=== PATIENT | male | born 1960 | race Caucasian/White ===

== ENCOUNTER 2018-10-04 10:25 | Emergency (ER) | payer OTHER ==
[2018-10-04 10:36] VITALS: BP 150/81
--- NOTE | 2018-10-04 10:43 | ER Document Report ---
ED Medical Screen (RME) - General Chief Complaint: Back Pain Stated Complaint: BACK PAIN Time Seen by Provider: 10/04/18 10:36 Mode of Arrival: Ambulatory Information source: Patient TRAVEL OUTSIDE OF THE [place] IN LAST 30 DAYS: No - HPI Patient complains to provider of: back pain, n/t Notes: 10/04/18 10:41 Patient here with complaints of back pain with numbness, tingling from the waist down. Patient states that he was installing a door when he had a sudden pain in his lower back. This happened on Wednesday. Since that time he has had intermittent low back pain, but complains of achy pain and numbness from his waist down including his groin area. He is not on blood thinners. No trauma or fall. No IV drug use. No fever. No abdominal pain. No nausea, vomiting, diarrhea. No dysuria or hematuria. He was seen at urgent care and was sent to the emergency department for further evaluation. Exam No distress, nontoxic-appearing. Reflexes are normal. Patient does complain of decreased sensation to his lower extremities bilaterally. This is diffuse. Patient is able to ambulate. Plan Patient will be taken to the back to be evaluated further by another provider in a more thorough fashion. They will be able to determine if imaging is indicated at this time. An initial examination was made on the patient as part of the triage process, and it was determined a more comprehensive evaluation was necessary. Initial labs were ordered and patient was transferred to another provider in the ED who assumed care and finished evaluation and plan. - Related Data Allergies/Adverse Reactions: No Known Allergies Allergy (Verified 10/04/18 10:40) Past Medical History - Social History Frequency of alcohol use: few beers daily Drug Abuse: None Renal/ Medical History: Denies: Hx Peritoneal Dialysis Physical Exam - Vital signs Vitals: Temp Pulse Resp BP Pulse Ox 97.9 F 74 18 150/81 H 98 10/04/18 10:35 10/04/18 10:35 10/04/18 10:35 10/04/18 10:35 10/04/18 10:35 Course - Vital Signs Vital signs: Temp Pulse Resp BP Pulse Ox 97.9 F 74 18 150/81 H 98 10/04/18 10:35 10/04/18 10:35 10/04/18 10:35 10/04/18 10:35 10/04/18 10:35
--- NOTE | 2018-10-04 13:26 | RADIOLOGY REPORT (SQ) ---
EXAM DESCRIPTION: MRI LUMBAR SPINE WITHOUT COMPLETED DATE/TIME: 10/04/2018 1:13 pm REASON FOR STUDY: r/o cauda equina COMPARISON: None. TECHNIQUE: Sagittal and Axial imaging includes T1, T2, STIR and gradient echo sequences. Coronal T2/ HASTE imaging. LIMITATIONS: None. FINDINGS: VISUALIZED UPPER ABDOMEN: Limited evaluation. No acute or suspicious findings suggested. SEGMENTATION: No transitional anatomy. The lowest well-developed disc space is labeled L5-S1. ALIGNMENT: Anatomic. VERTEBRAE: Intact. BONE MARROW: Normal. No marrow replacement or reactive changes. DISC SIGNAL: Decreased height and signal. POSTERIOR ELEMENTS: Generally intact. No pars defect evident. HARDWARE: None in the spine. CORD AND CONUS: Normal in size and signal intensity. Conus at the appropriate level. SOFT TISSUES: No aortic aneurysm seen. No bulky retroperitoneal adenopathy or mass. No paraspinal mas s or fluid. L1-L2: Mild diffuse posterior disc bulge, asymmetric to the right side. Mild to moderate right later al recess stenosis. No significant exit foraminal stenosis. L2-L3: Mild diffuse posterior disc bulge. Mild facet arthropathy. Moderate spinal stenosis. No sig nificant exit foraminal stenosis. L3-L4: Mild diffuse posterior disc bulge. Moderate facet arthropathy. Moderate spinal stenosis. Mi ld exit foraminal stenosis. L4-L5: Diffuse posterior disc bulge. Moderate to severe facet arthropathy. Severe spinal stenosis. Mild exit foraminal stenosis. L5-S1: No significant disc bulge. Mild facet arthropathy. No significant spinal stenosis or exit fo raminal stenosis. LOWER THORACIC: Incompletely imaged. No stenosis seen. SACRUM: Visualized upper sacrum intact. OTHER: No other significant findings. IMPRESSION: MULTILEVEL CHRONIC DEGENERATIVE CHANGES DESCRIBED ABOVE WITH AREAS OF STENOSIS, MOST PRONOUNCED AT L4-L5. NO ACUTE FINDINGS. TECHNICAL DOCUMENTATION: JOB ID: [id number] [employer]- All Rights Reserved Reading location - IP/workstation name: [email or web address]
--- NOTE | 2018-10-04 14:05 | ER Document Report ---
ED General - General Chief Complaint: Back Pain Stated Complaint: BACK PAIN Time Seen by Provider: 10/04/18 10:36 Mode of Arrival: Ambulatory TRAVEL OUTSIDE OF THE [place] IN LAST 30 DAYS: No - HPI Notes: Patient is a 58-year-old gentleman comes in for evaluation of back pain with leg numbness. He states on Wednesday he was lifting above his head, pushing, when he had sudden onset of back pain with radiation into his buttocks and bilateral legs. He states his pain is minimal at this time, but he continues to complain of numbness. It was sudden onset at that time, and it remains. He is able to walk. He denies any bowel or bladder incontinence. I asked him if he has any saddle anesthesia or numbness in and around his testicles, he is unable to answer me beyond "kind of." No focal weakness that he has noted. - Related Data Allergies/Adverse Reactions: No Known Allergies Allergy (Verified 10/04/18 10:40) Past Medical History - General Information source: Patient - Social History Smoking Status: Never Smoker Frequency of alcohol use: few beers daily Drug Abuse: None Family History: Reviewed & Not Pertinent Patient has suicidal ideation: No Patient has homicidal ideation: No Renal/ Medical History: Denies: Hx Peritoneal Dialysis Review of Systems - Review of Systems Constitutional: No symptoms reported EENT: No symptoms reported Cardiovascular: No symptoms reported Respiratory: No symptoms reported Gastrointestinal: No symptoms reported Genitourinary: See HPI Male Genitourinary: No symptoms reported Musculoskeletal: See HPI Skin: No symptoms reported Neurological/Psychological: See HPI Physical Exam - Vital signs Vitals: Temp Pulse Resp BP Pulse Ox 97.9 F 74 18 150/81 H 98 10/04/18 10:35 10/04/18 10:35 10/04/18 10:35 10/04/18 10:35 10/04/18 10:35 - Notes Notes: Vital signs reviewed, please refer to chart. Patient is normocephalic, atraumatic. Pupils equal round, reactive to light. Neck is supple without meningismus. Heart is regular rate and rhythm. Lungs are clear to auscultation bilaterally. Abdomen is soft, nontender, normoactive bowel sounds throughout. Extremities without cyanosis, clubbing, edema. Peripheral pulses are equal. Skin is warm and dry. Patient is awake, alert, oriented x3. Examination of the spine is no midline tenderness or step-off. He has very mild paraspinal musculature tenderness at the L4-L5 region, bilaterally. No piriformis tenderness to palpation. Negative straight leg raise on the left, positive on the right. Patellar and Achilles reflexes are mildly diminished but symmetrical. Sensation is diminished throughout every dermatomal distribution of the bilateral lower extremities. Patient does report having diminished sensation on the perineum, but good rectal tone. Course - Re-evaluation Re-evalutation: 10/04/18 13:58 Patient presents the emergency department for evaluation. With his presentation, I was most concerned about the possibility of cauda equina. I did discuss with study to order with radiology, MRI of the lumbar spine was placed. MRI revealed diffuse disc bulging, most notably at L4-L5, as well as lumbar spinal stenosis. There is no sign of an acute process. Patient really states he has only minimal pain. We will go ahead and treat him with steroids. Have him follow-up with primary care. He is return to the emergency department with worsening or new concerning symptoms of any sort. - Vital Signs Vital signs: Temp Pulse Resp BP Pulse Ox 97.9 F 74 18 150/81 H 98 10/04/18 10:35 10/04/18 10:35 10/04/18 10:35 10/04/18 10:35 10/04/18 10:35 Discharge - Discharge Clinical Impression: Lumbar spinal stenosis, Bilateral leg numbness Condition: Stable Disposition: HOME, SELF-CARE Instructions: Low Back Pain ([facility]) Additional Instructions: Take medication as prescribed until gone. Follow-up with your doctor this week. Return to the emergency department with worsening or new concerning symptoms of any sort. Prescriptions: Methylprednisolone [Medrol Dosepack (4 mg/Tab) 21 Tab/Dosepak] 21 tab PO ASDIR #1 dspk
== END 2018-10-04 14:41 | disposition home or self-care (01) ==
LOC: ER 10:25
DX: M48.061 Spinal stenosis, lumbar region without neurogenic claudication (principal); R20.0 Anesthesia of skin; M54.9 Dorsalgia, unspecified; M79.604 Pain in right leg; M79.605 Pain in left leg; X50.0XXA Overexertion from strenuous movement or load, initial encounter
CPT/HCPCS: 72148; 99283